=== PATIENT | female | born 1970 | race Caucasian/White ===

== ENCOUNTER 2019-12-20 18:32 | Emergency (ER) | payer MEDICAID ==
[~2019-12-20] VITALS: Ht 162.6 cm; Wt 117.3 kg
[~2019-12-20 18:32] MED LIST: AMLO-150 PO; BUTA1CAP5 PO; CYCL-259 PO; DIAZ5TAB PO; ERGO500017 PO; FURO-92 PO; LOSA100T14 PO; OXYC1TAB18 PO; PARI1CAP3 PO; POTA10TA11 PO
--- NOTE | 2019-12-20 19:10 | NUR ---
THIS IS A 49 YO FEMALE COMING IN FOR "ALL OVER BODY SWELLING, AND I NEED A DIALYSIS TREATMENT". PATIENT HAS NOT BEEN TO DIALYSIS CENTER FOR OVER 1 MONTH. LAST DIALYZED IN ED 2 WEEKS AGO. CURRENTLY C/O DIFFUSE SWELLING ALL OVER BODY AND SOB RELATED TO SWELLING. CRACKLES AUSCULTATED IN BILATERAL BASES OF LUNGS. RESPIRATIONS EVEN AND UNLABORED. ALL MONITORING IN PLACE, NSR ON [facility]. CALL LIGHT IN REACH
[2019-12-20 19:41] LABS: BASOPHILS % (AUTO) 0 % (0-1); EOSINOPHILS # (AUTO) 0.26 x10^3/uL (0-0.4); EOSINOPHILS % (AUTO) 4 % (1-7); LYMPHOCYTES # (AUTO) 1.63 x10^3/uL (1-3.4); LYMPHOCYTES % (AUTO) 22 % (22-44); MD NO; MEAN CORPUSCULAR HEMOGLOBIN 31.3 pg (27.0-34.8); MEAN CORPUSCULAR HGB CONC 32.3 g/dL (32.4-35.8); MEAN PLATELET VOLUME 7.9 fL (7.4-10.4); MONOCYTES # (AUTO) 0.34 x10^3/uL (0.2-0.8); MONOCYTES % (AUTO) 5 % (2-9); NEUTROPHILS # (AUTO) 5.07 x10^3/uL (1.8-6.8); NEUTROPHILS % (AUTO) 69 % (42-75); PLATELET COUNT 188 x10^3/uL (130-400); RED BLOOD COUNT 4.32 x10^6/uL (3.82-5.3); RED CELL DISTRIBUTION WIDTH 16.1 % (9.6-15.2)
[2019-12-20 19:54] LABS: ALBUMIN 2.5 g/dL (3.4-5.0); ANION GAP 5 mmol/L (5-15); CALCIUM 8.2 mg/dL (8.5-10.1); CHLORIDE 115 mmol/L (98-107)
--- NOTE | 2019-12-20 20:00 | NUR ---
PATIENT RESTING ON GURNEY, RESPIRATIONS EVEN AND UNLABORED. VSS, BRITTNY. CALL LIGHT IN REACH. WAITING FOR LABS
[2019-12-20 20:11] LABS: CREATININE 4.74 mg/dL (0.55-1.02)
[2019-12-20 21:00] VITALS: BP 154/100
--- NOTE | 2019-12-20 21:02 | NUR ---
ALL RESULTS BACK, PATIENT UP FOR RECHECK
--- NOTE | 2019-12-20 21:30 | NUR ---
Patient given discharge instructions and they have confirmed that they understand the instructions. Patient ambulatory with steady gait.
== END 2019-12-20 21:33 | disposition home or self-care (01) ==
LOC: ED 19:03
DX: N18.3 Chronic kidney disease, stage 3 (moderate) (principal); R06.00 Dyspnea, unspecified; R94.31 Abnormal electrocardiogram [ECG] [EKG]; Z99.2 Dependence on renal dialysis
CPT/HCPCS: 36415; 71045; 80048; 82040; 83880; 85025; 93005; 99285

== ENCOUNTER 2020-02-29 11:51 | Emergency (ER) | payer MEDICAID ==
[~2020-02-29] VITALS: Ht 162.6 cm; Wt 113.6 kg
--- NOTE | 2020-02-29 12:49 | NUR ---
PT BROUGHT BACK TO ROOM VIA WC. ABLE TO AMBULATE TO [facility]. IN MODERATE RESPIRATORY DISTRESS. SPEAKING IN FULL SENTENCES. ERP AT BS IMMEDIATELY. PT STATES SHE'S SUPPOSED TO GET DIALYSIS 3 DAYS/WEEK BUT HASN'T RECEIVED IT IN ABOUT A WEEK. WANTS TO START GETTING DIALYSIS AT [facility] IN [place] BUT WAS TOLD SHE NEEDS TO BE SEEN IN THE ER FIRST. HAS HD CATH TO R UPPER CHEST; CURRENTLY NOT COVERED BY ANY DRESSING - PT STATES "IT FELL OFF" - REDNESS NOTED AROUND ALL INSERTION SITES. POC RV'WD WITH PT, SHE VERBALIZES UNDERSTANDING. IV INSERTION ATTEMPTED BUT UNSUCCESSFUL.
[2020-02-29] MEDS ORDERED: SODIUM CHLORIDE FLUSH 10ML SYR IVF ONE (13:00)
[2020-02-29 13:07] LABS: BASOPHILS % (AUTO) 1 % (0-1); EOSINOPHILS % (AUTO) 3 % (1-7); LYMPHOCYTES % (AUTO) 19 % (22-44); MEAN CORPUSCULAR HEMOGLOBIN 30.7 pg (27.0-34.8); MEAN CORPUSCULAR HGB CONC 32.1 g/dL (32.4-35.8); MEAN PLATELET VOLUME 8.9 fL (7.4-10.4); MONOCYTES % (AUTO) 5 % (2-9); NEUTROPHILS % (AUTO) 72 % (42-75); PLATELET COUNT 162 x10^3/uL (130-400); RED BLOOD COUNT 4.29 x10^6/uL (3.82-5.3); RED CELL DISTRIBUTION WIDTH 15.2 % (9.6-15.2)
[2020-02-29 13:08] LABS: MD NO
[2020-02-29] MEDS ORDERED: ALBUTEROL/IPRATROPIUM 2.5MG/0.5MG, 3 ML ONE (13:09)
[2020-02-29 13:17] LABS: ALBUMIN 2.6 g/dL (3.4-5.0); ANION GAP 6 mmol/L (5-15); CALCIUM 8.1 mg/dL (8.5-10.1); CHLORIDE 112 mmol/L (98-107)
--- NOTE | 2020-02-29 13:18 | NUR ---
IV INSERTED BY ASSIST RN. PT REQUESTING BREATHING TX; VERBAL ORDER RC'VD BY ERP. PT REPORTS SHE'S SUPPOSED TO BE TAKING LASIX, LOSARTAN, AMLODIPINE, VIT D, BUT ISN'T CURRENTLY TAKING ANY MEDS.
[2020-02-29] MEDS ORDERED: VITAMIN D PO (13:20)
[2020-02-29] MEDS ORDERED: ALBUTEROL/IPRATROPIUM 2.5MG/0.5MG, 3 ML NPPB ONE (13:30)
[2020-02-29 13:33] LABS: CREATININE 4.58 mg/dL (0.55-1.02)
--- NOTE | 2020-02-29 13:45 | NUR ---
PT STATES SHE FEELS BETTER AFTER BREATHING TX. BREATHING NOT LABORED. PLAN TO ADMIT PT.
[2020-02-29] MEDS ORDERED: LOSARTAN 100 MG TAB PO STA (14:05)
[2020-02-29] MEDS ORDERED: FUROSEMIDE 40 MG/4 ML ONE (14:14)
[2020-02-29] MEDS ORDERED: FUROSEMIDE 20 MG/2 ML IV ONE (14:30)
--- NOTE | 2020-02-29 14:44 | NUR ---
PT MEDICATED PER ORDERS. STATES SHE HAS TO LEAVE TO TAKE CARE OF HER KIDS. ERP AWARE. WILL RECHECK BP AND THEN PT CAN BE DISCHARGED. DIALYSIS CATH INSERTION SITES TO R UPPER CHEST CLEANED USING CHLORHEXADINE AND STERILE TECHNIQUE AND NEW STERILE DRESSING APPLIED.
[2020-02-29 14:48] LABS: TROPONIN I 0.048 ng/mL (0.000-0.045)
[2020-02-29 15:16] VITALS: BP 173/123
--- NOTE | 2020-02-29 15:27 | NUR ---
SPO2 MUCH IMPROVED AFTER BREATHING TX, 98-100% ON 2L NC. PT STATES SHE HAS HOME O2. D/C INSTRUCTIONS, MEDS & F/U APPT RV'WD WITH PT, SHE VERBALIZES UNDERSTANDING. RX GIVEN X2. COPY OF H&P PROVIDED TO PT. PT STATES SHE WON'T BE ABLE TO GET AN APPT WITH [facility] YET, SO SHE WILL RETURN TO ED TOMORROW FOR EMERGENT DIALYSIS. ASSISTED OUT OF ED VIA WC. FAMILY TO PICK HER UP.
== END 2020-02-29 15:32 | disposition left against medical advice (07) ==
LOC: ED 12:25 → EDIP 13:56 → UNDOADMIN 13:56 → ED 15:26
DX: I12.9 Hypertensive chronic kidney disease with stage 1 through stage 4 chronic kidney disease, or unspecified chronic kidney disease (principal); N18.9 Chronic kidney disease, unspecified; R06.00 Dyspnea, unspecified; I45.9 Conduction disorder, unspecified; R94.31 Abnormal electrocardiogram [ECG] [EKG]; J44.9 Chronic obstructive pulmonary disease, unspecified; F17.200 Nicotine dependence, unspecified, uncomplicated; Z91.19 Patient's noncompliance with other medical treatment and regimen
CPT/HCPCS: 36415; 71045; 80048; 82040; 83880; 84484; 85025; 93005; 94640; 96374; 99285; J1940

== ENCOUNTER 2020-03-02 15:48 | Inpatient (IN) | payer MEDICAID ==
[~2020-03-02] VITALS: Ht 162.6 cm; Wt 113.0 kg
[~2020-03-02 15:48] MED LIST changes: +VITAMIN D PO
[2020-03-02 16:26] LABS: BASOPHILS % (AUTO) 1 % (0-1); EOSINOPHILS % (AUTO) 3 % (1-7); LYMPHOCYTES % (AUTO) 18 % (22-44); MEAN CORPUSCULAR HEMOGLOBIN 30.2 pg (27.0-34.8); MEAN CORPUSCULAR HGB CONC 31.3 g/dL (32.4-35.8); MEAN PLATELET VOLUME 8.6 fL (7.4-10.4); MONOCYTES % (AUTO) 5 % (2-9); NEUTROPHILS % (AUTO) 73 % (42-75); PLATELET COUNT 168 x10^3/uL (130-400); RED BLOOD COUNT 4.38 x10^6/uL (3.82-5.3); RED CELL DISTRIBUTION WIDTH 15.3 % (9.6-15.2)
[2020-03-02 16:33] LABS: MD NO
[2020-03-02 16:39] LABS: ALBUMIN 2.6 g/dL (3.4-5.0); ANION GAP 4 mmol/L (5-15); CALCIUM 7.9 mg/dL (8.5-10.1); CHLORIDE 111 mmol/L (98-107)
[2020-03-02 16:56] LABS: ALANINE AMINOTRANSFERASE 22 U/L (12-78); ALKALINE PHOSPHATASE 143 U/L (45-117); BILIRUBIN,TOTAL 0.6 mg/dL (0.2-1.0); CREATININE 4.35 mg/dL (0.55-1.02); TOTAL PROTEIN 5.9 g/dL (6.4-8.2)
--- NOTE | 2020-03-02 17:31 | NUR ---
COAT OPERATOR INSULATOR: PT TO ROOM FROM LOBBY
[2020-03-02] MEDS ORDERED: LOSARTAN 50MG TABLET PO ONE (18:30)
[2020-03-02] MEDS ORDERED: FUROSEMIDE 40 MG/4 ML IV ONE ×2 (18:30)
[2020-03-02] MEDS ORDERED: AMLODIPINE 5 MG TABLET PO ONE (18:30)
[2020-03-02] MEDS ORDERED: FUROSEMIDE 40 MG/4 ML ONE (18:51)
[2020-03-02] MEDS ORDERED: AMLODIPINE 5 MG TABLET ONE (18:52)
[2020-03-02] MEDS ORDERED: FUROSEMIDE 20 MG/2 ML ONE (18:52)
[2020-03-02] MEDS ORDERED: LABETALOL 5MG/ML, 20ML IVPush PRN (19:00)
[2020-03-02] MEDS ORDERED: ENALAPRILAT 1.25 MG/ML, 2ML IVPush PRN (19:00)
[2020-03-02] MEDS ORDERED: ACETAMINOPHEN 325 MG TABLET PO PRN (19:00)
[2020-03-02] MEDS ORDERED: GUAIFENESIN/DM 200-20MG, 10ML UDC PO PRN (19:00)
[2020-03-02] MEDS ORDERED: hydrALAzine 20 MG/ML, 1ML IVPush PRN (19:00)
[2020-03-02] MEDS ORDERED: DOCUSATE 100 MG CAPSULE PO PRN (19:00)
--- NOTE | 2020-03-02 19:14 | NUR ---
PT MEDICATED WITH LASIX AND PO MEDS. BP ELEVATED. COMMODE AT BEDSIDE. PT TO BE ADMITTED. CALL LIGHT IN REACH
--- NOTE | 2020-03-02 19:15 | NUR ---
REPORT GIVEN TO CONNIE LR. PT RESTING ON [employer] W/ CALL LIGHT IN REACH, RESP EVEN AND UNLABORED, BRITTNY.
--- NOTE | 2020-03-02 20:19 | NUR ---
PT GIVEN A SNACK. VSS. CALL LIGHT IN REACH
[2020-03-02] MEDS ORDERED: ACETAMINOPHEN 500 MG TABLET PO ONE (20:30)
[2020-03-02] MEDS ORDERED: ALBUTEROL SULFATE 2.5 MG/3 ML ONE (20:46)
[2020-03-02] MEDS ORDERED: HEPARIN 5,000 UNITS/ML, 1ML ONE (20:46)
[2020-03-02] MEDS ORDERED: ACETAMINOPHEN 500 MG TABLET ONE ×2 (20:46→20:50)
[2020-03-02] MEDS ORDERED: ALBUTEROL SULFATE 2.5 MG/3 ML NPPB ONE (21:00)
[2020-03-02] MEDS: HEPARIN 5,000 UNITS/ML, 1ML SQ SCH (21:00)
--- NOTE | 2020-03-02 21:00 | NUR ---
task rn: medicated per emar
[2020-03-02 22:15] VITALS: BP 158/97
[2020-03-03 00:08] VITALS: BP 160/96
[2020-03-03] MEDS ORDERED: NICOTINE 14MG/24 HR PATCH.TD24 ONE (01:33)
[2020-03-03] MEDS: ALBUTEROL HFA 90 MCG/SPRAY INH PRN ×2 (02:32→06:19)
[2020-03-03] MEDS: HEPARIN 5,000 UNITS/ML, 1ML SQ SCH ×3 (05:01→21:00)
[2020-03-03 05:28] LABS: BASOPHILS % (AUTO) 1 % (0-1); EOSINOPHILS % (AUTO) 4 % (1-7); LYMPHOCYTES % (AUTO) 20 % (22-44); MEAN CORPUSCULAR HEMOGLOBIN 30.8 pg (27.0-34.8); MEAN CORPUSCULAR HGB CONC 31.6 g/dL (32.4-35.8); MEAN PLATELET VOLUME 8.7 fL (7.4-10.4); MONOCYTES % (AUTO) 6 % (2-9); NEUTROPHILS % (AUTO) 70 % (42-75); PLATELET COUNT 159 x10^3/uL (130-400); RED CELL DISTRIBUTION WIDTH 15.2 % (9.6-15.2)
[2020-03-03 05:30] LABS: MD NO
[2020-03-03 05:38] LABS: ANION GAP 4 mmol/L (5-15); CALCIUM 7.8 mg/dL (8.5-10.1); CHLORIDE 113 mmol/L (98-107)
[2020-03-03 05:40] LABS: CREATININE 4.33 mg/dL (0.55-1.02)
[2020-03-03] MEDS ORDERED: LOSARTAN 100 MG TAB PO SCH (09:00)
[2020-03-03] MEDS ORDERED: POTASSIUM CHLORIDE 10 MEQ TABLET.ER PO SCH (09:00)
[2020-03-03] MEDS ORDERED: NICOTINE 14MG/24 HR PATCH.TD24 TD SCH (09:00)
[2020-03-03] MEDS ORDERED: AMLODIPINE 5 MG TABLET PO SCH (09:00)
[2020-03-03 09:10] VITALS: BP 130/85
[2020-03-03] MEDS: FUROSEMIDE 40 MG TABLET PO SCH ×3 (09:13→20:45)
[2020-03-03] MEDS ORDERED: CATHFLO-ALTEPLASE 2 MG/2 ML CATHFLUSH ONE ×2 (12:00)
[2020-03-03 16:49] VITALS: BP 148/95
== END 2020-03-03 22:30 | disposition home or self-care (01) | DRG 194 ==
LOC: ED 18:39 → EDIP 18:51 → 4WST 21:59 → 3WST 03-03 09:47
PROVIDERS: ADMIT Family Medicine; ATTEND Family Medicine
PROC: 5A1D70Z Performance of Urinary Filtration, Intermittent, Less than 6 Hours Per Day (ICD-10-PCS; principal; 2020-03-02)
DX: I13.2 Hypertensive heart and chronic kidney disease with heart failure and with stage 5 chronic kidney disease, or end stage renal disease (principal); I50.33 Acute on chronic diastolic (congestive) heart failure; D63.1 Anemia in chronic kidney disease; I16.0 Hypertensive urgency; I31.3 Pericardial effusion (noninflammatory); J44.1 Chronic obstructive pulmonary disease with (acute) exacerbation; J96.01 Acute respiratory failure with hypoxia; N18.6 End stage renal disease; Z72.0 Tobacco use; Z87.442 Personal history of urinary calculi; Z91.14 Patient's other noncompliance with medication regimen; Z99.2 Dependence on renal dialysis; Z91.15 Patient's noncompliance with renal dialysis; Z88.2 Allergy status to sulfonamides; Z91.048 Other nonmedicinal substance allergy status
CPT/HCPCS: 36415; 71045; 80048; 80053; 83880; 85025; 86704; 86706; 87340; 90935; 93005; 96374; 99285; G0378; J1644; J1940; J2997; J7613; J0360

== ENCOUNTER 2020-04-06 12:35 | Emergency (ER) | payer MEDICAID ==
[~2020-04-06] VITALS: Ht 162.6 cm; Wt 115.0 kg
[2020-04-06] MEDS ORDERED: HYDROcodone/APAP 5/325 TABLET PO PRN (13:00)
[2020-04-06] MEDS ORDERED: ALBUTEROL/IPRATROPIUM 2.5MG/0.5MG, 3 ML NPPB ONE (13:00)
--- NOTE | 2020-04-06 13:08 | NUR ---
PT TO RADIOLOGY WITH TECH TRANSPORT
[2020-04-06] MEDS ORDERED: HYDROcodone/APAP 5/325 TABLET ONE (13:10)
[2020-04-06 13:27] LABS: BASOPHILS % (AUTO) 1 % (0-1); EOSINOPHILS % (AUTO) 1 % (1-7); LYMPHOCYTES % (AUTO) 7 % (22-44); MEAN CORPUSCULAR HEMOGLOBIN 30.1 pg (27.0-34.8); MEAN CORPUSCULAR HGB CONC 31.5 g/dL (32.4-35.8); MONOCYTES % (AUTO) 4 % (2-9); NEUTROPHILS % (AUTO) 87 % (42-75); PLATELET COUNT 205 x10^3/uL (130-400); RED BLOOD COUNT 4.28 x10^6/uL (3.82-5.3); RED CELL DISTRIBUTION WIDTH 15.6 % (9.6-15.2)
--- NOTE | 2020-04-06 13:27 | NUR ---
TASK RN: MEDICATED PER MAY.
[2020-04-06 13:29] LABS: MD NO
[2020-04-06 13:43] LABS: ANION GAP 7 mmol/L (5-15); CALCIUM 8.5 mg/dL (8.5-10.1); CHLORIDE 110 mmol/L (98-107); CREATININE 4.99 mg/dL (0.55-1.02)
[2020-04-06 13:44] LABS: ALBUMIN 2.3 g/dL (3.4-5.0)
[2020-04-06] MEDS ORDERED: ALBUTEROL/IPRATROPIUM 2.5MG/0.5MG, 3 ML ONE (14:00)
--- NOTE | 2020-04-06 14:22 | NUR ---
PT RATES PAIN NOW 5/10 AFTER NORCO. VSS, TESTS RESULTED AND CHART UP FOR RECHECK. PT AWARE. CALL LIGHT W/I REACH
--- NOTE | 2020-04-06 15:09 | NUR ---
DR HUGHES AT BEDSIDE, PLAN FOR CLOSED REDUCTION LEFT SHOULDER DISCUSSED AND QUESTIONS ANSWERED. CONSENT OBTAINED. PIV EST.
[2020-04-06] MEDS ORDERED: FENTANYL PF 100 MCG/2ML ONE (15:10)
[2020-04-06] MEDS ORDERED: ETOMIDATE 20 MG/10 ML ONE (15:11)
--- NOTE | 2020-04-06 16:10 | NUR ---
TASK RN: PT AWAKENS WITH LIGHT TOUCH STILUMUS, RESTING COMFORTABLY, NAD, IMMOBILIZER IN PLACE WITH +RAD PULSE & CAP REFIL <3 SEC TO RT WRIST/HAND. Addendum: 04/06/20 at 1616 by GERSON TASK RN: PT AWAKENS WITH LIGHT TOUCH STILUMUS, RESTING COMFORTABLY, NAD, IMMOBILIZER IN PLACE WITH +RAD PULSE & CAP REFIL <3 SEC TO LT WRIST/HAND.
--- NOTE | 2020-04-06 16:24 | NUR ---
TASK RN: PT AWAKENS WITH VERBAL STILUMI & ANSWERS MOST QUESTIONS APPROP, CONTINUES TO RESTING COMFORTABLY WITH NAD UNLESS TRYING TO REPOSITION SELF ON GURNEY, IMMOBILIZER REMAINS IN PLACE WITH +RAD PULSE & CAP REFIL <3 SEC TO RT WRIST/HAND.
--- NOTE | 2020-04-06 16:35 | NUR ---
TASK RN: PT SPONTANEOUSLY OPENS EYES TO WITH VERBAL STILUMI & ANSWERS QUESTIONS APPROP, CONTINUES TO REST COMFORTABLY, IMMOBILIZER REMAINS IN PLACE WITH +RAD PULSE & CAP REFIL <3 SEC TO RT WRIST/HAND.
--- NOTE | 2020-04-06 16:50 | NUR ---
TASK RN: PT SPONTANEOUSLY OPENS EYES TO WITH VERBAL STILUMI & ANSWERS QUESTIONS APPROP, GOOD COUGH EFFORT & ABLE TO CLEAR SECRETIONS INDEPENDENTLY, CONTINUES TO REST COMFORTABLY, IMMOBILIZER REMAINS IN PLACE WITH +RAD PULSE & CAP REFIL <3 SEC TO RT WRIST/HAND.
[2020-04-06] MEDS ORDERED: FENTANYL PF 100 MCG/2ML IVPush ONE (17:30)
[2020-04-06] MEDS ORDERED: ETOMIDATE 20 MG/10 ML IVPush ONE (17:30)
[2020-04-06 18:00] VITALS: BP 153/99
--- NOTE | 2020-04-06 18:36 | NUR ---
LATE ENTRY FOR PROCEDURE. 1530 DR HUGHES AT BEDSIDE, PT SEDATED NOTED WITH EFFECT. CLOSED REDUCTION COMPLETED AND POST REDUCTION XRAY COMPLETED AND REVIEWED BY DR HUGHES. REDUCTION SUCCESSFUL. SHOLDER IMMOBILIZER PLACED. PT TOLLERATED WELL AND REMAINS SLEEPING. RN AT [facility]. 1610 PT AWAKE, PT DENIES ANY MEMORY OF THE PROCEDURE.
--- NOTE | 2020-04-06 18:49 | NUR ---
LATE ENTRY FOR 1809. PT OOB TO WHEELCHAIR WITH RN STANDBY ASSIST. PT TOLLERATED WELL AND DENIES ANY DIZZINESS.
--- NOTE | 2020-04-06 18:50 | NUR ---
Patient/Caregiver given discharge instructions and they have confirmed that they understand the instructions. I stressed to pts S.O. Silas Richmond that pt is to have no alcohol or recreational drugs including no marrijuana tonight. Patient to car via wheelchair and transfered into car w/o difficulty.
== END 2020-04-06 18:54 | disposition home or self-care (01) ==
LOC: ED 17:03
DX: S42.202A Unspecified fracture of upper end of left humerus, initial encounter for closed fracture (principal); R06.2 Wheezing; I13.2 Hypertensive heart and chronic kidney disease with heart failure and with stage 5 chronic kidney disease, or end stage renal disease; N18.6 End stage renal disease; I50.9 Heart failure, unspecified; Z99.2 Dependence on renal dialysis; W18.30XA Fall on same level, unspecified, initial encounter; Y93.89 Activity, other specified; Y92.89 Other specified places as the place of occurrence of the external cause; Y99.8 Other external cause status
CPT/HCPCS: 23650; 36415; 73020; 73060; 73200; 80048; 82040; 85025; 94640; 99152; 99285; J3010

== ENCOUNTER 2020-04-26 12:50 | Inpatient (IN) | payer MEDICAID ==
[~2020-04-26] VITALS: Ht 165.1 cm; Wt 105.0 kg
[~2020-04-26 12:50] MED LIST changes: -CYCL-259 PO; +CYCL10TA2 PO
--- NOTE | 2020-04-26 13:15 | NUR ---
PT brought back to room via WC. pt in with C/O of increased shortness of breath and fatigue. pt states that she has not had diaylsis in 2 weeks and "all my body wants to do is sleep"
[2020-04-26] MEDS ORDERED: FUROSEMIDE 40 MG/4 ML IVPush ONE (14:00)
[2020-04-26] MEDS ORDERED: FUROSEMIDE 40 MG/4 ML ONE (14:15)
[2020-04-26 14:46] LABS: BASOPHILS % (AUTO) 1 % (0-1); EOSINOPHILS % (AUTO) 2 % (1-7); LYMPHOCYTES % (AUTO) 15 % (22-44); MEAN CORPUSCULAR HEMOGLOBIN 29.9 pg (27.0-34.8); MEAN CORPUSCULAR HGB CONC 30.7 g/dL (32.4-35.8); MONOCYTES % (AUTO) 9 % (2-9); NEUTROPHILS % (AUTO) 74 % (42-75); PLATELET COUNT 175 x10^3/uL (130-400); RED BLOOD COUNT 3.68 x10^6/uL (3.82-5.3); RED CELL DISTRIBUTION WIDTH 16.9 % (9.6-15.2)
[2020-04-26 14:54] LABS: MD NO
[2020-04-26 14:58] LABS: ALBUMIN 2.8 g/dL (3.4-5.0); CALCIUM 7.6 mg/dL (8.5-10.1); CHLORIDE 108 mmol/L (98-107); CREATININE 4.86 mg/dL (0.55-1.02)
[2020-04-26 15:02] LABS: TROPONIN I 0.063 ng/mL (0.000-0.045)
--- NOTE | 2020-04-26 15:03 | NUR ---
RECEIVED REPORT FROM JESE LR, PLAN OF CARE DISCUSSED
[2020-04-26 15:07] LABS: ANION GAP 5 mmol/L (5-15)
--- NOTE | 2020-04-26 15:11 | NUR ---
PT REQUESTS FAMILY MEMBER TO VISIT, CALLED FAMILY MEMBER IN LOBBY, NO ANSWER.
--- NOTE | 2020-04-26 16:02 | NUR ---
WARM BLANKET GIVEN, ORDERED MEAL PER PT REQUEST
--- NOTE | 2020-04-26 16:28 | NUR ---
Sherice RN note: This RN entered pt room to answer pt's call light. Pt reports "There's blood everywhere". This RN assessed pt. Scant amount of blood noted on scratches on pt's L posterior forearm. Pt reports the scratches are from her scratching her arm "because I'm so itchy." Pt provided with wet washcloth per request to wipe scratches. Pt assisted to position herselff for comfort in bed. Continuous oxygen and BP monitors reapplied as pt had removed them. Pt requesting food to eat. Dr. Ortega, animal surgeon, at bedside to evaluate pt.
--- NOTE | 2020-04-26 16:53 | NUR ---
MEAL PROVIDED FOR PATIENT, PT VERBALIZED APPRECIATION AND NO OTHER NEEDS AT THIS TIME
--- NOTE | 2020-04-26 17:34 | NUR ---
PT ATE 100%, PT REQUESTED LIGHTS OFF TO SLEEP, CALL LIGHT IN PLACE, VERBALIZED NO OTHER NEEDS AT THIS TIME
--- NOTE | 2020-04-26 17:54 | NUR ---
CALLED REPORT TO MARCY LR, 4W, PLAN OF CARE DISCUSSED
[2020-04-26] MEDS ORDERED: ONDANSETRON 2MG/ML, 2ML IVPush PRN (18:00)
[2020-04-26] MEDS ORDERED: FUROSEMIDE 40 MG/4 ML IV ONE (18:00)
[2020-04-26] MEDS ORDERED: ONDANSETRON ODT 4 MG PO PRN (18:00)
[2020-04-26] MEDS ORDERED: hydrALAzine 20 MG/ML, 1ML IVPush PRN (18:00)
[2020-04-26] MEDS ORDERED: ACETAMINOPHEN 325 MG TABLET PO PRN (18:00)
[2020-04-26] MEDS ORDERED: FUROSEMIDE 20 MG/2 ML IV ONE (18:30)
[2020-04-26] MEDS: methylPREDNISolone SOD SUCC 125 MG/2 ML IVPush SCH (18:45)
[2020-04-26] MEDS: HEPARIN 5,000 UNITS/ML, 1ML SQ SCH (18:45)
[2020-04-26 18:52] VITALS: BP 162/101
[2020-04-26 19:16] VITALS: BP 143/86
[2020-04-26 20:44] LABS: AMPHETAMINE SCREEN, URINE Negative (Negative); BARBITURATE SCREEN, URINE Negative (Negative); BENZODIAZEPINE SCREEN, URINE Negative (Negative); CANNABINOID SCREEN, URINE Negative (Negative); COCAINE SCREEN, URINE Positive (Negative); METHADONE SCREEN, URINE Negative (Negative); OPIATE SCREEN, URINE Negative (Negative)
[2020-04-26] MEDS ORDERED: LORazepam 0.5MG TABLET PO ONE (22:30)
[2020-04-27 00:01] VITALS: BP 163/107
[2020-04-27] MEDS: OXYcodone IR 5MG TABLET PO PRN ×2 (00:18→14:15)
[2020-04-27 00:23] VITALS: BP 139/90
[2020-04-27] MEDS: HEPARIN 5,000 UNITS/ML, 1ML SQ SCH ×3 (03:18→18:10)
[2020-04-27] MEDS: methylPREDNISolone SOD SUCC 125 MG/2 ML IVPush SCH ×3 (03:18→18:10)
[2020-04-27 07:39] VITALS: BP 158/85
[2020-04-27] MEDS: LOSARTAN 100 MG TAB PO SCH (08:13)
[2020-04-27] MEDS: AMLODIPINE 5 MG TABLET PO SCH (08:13)
[2020-04-27 08:14] LABS: BASOPHILS % (AUTO) 0 % (0-1); EOSINOPHILS % (AUTO) 0 % (1-7); LYMPHOCYTES % (AUTO) 7 % (22-44); MEAN CORPUSCULAR HEMOGLOBIN 30.1 pg (27.0-34.8); MEAN CORPUSCULAR HGB CONC 30.9 g/dL (32.4-35.8); MEAN PLATELET VOLUME 8.4 fL (7.4-10.4); MONOCYTES % (AUTO) 1 % (2-9); NEUTROPHILS % (AUTO) 93 % (42-75); PLATELET COUNT 155 x10^3/uL (130-400); RED CELL DISTRIBUTION WIDTH 16.9 % (9.6-15.2)
[2020-04-27] MEDS: ALBUTEROL HFA 90 MCG/SPRAY INH SCH ×4 (08:15→22:00)
[2020-04-27 08:25] LABS: ALANINE AMINOTRANSFERASE 50 U/L (12-78); ALBUMIN 2.9 g/dL (3.4-5.0); ANION GAP 5 mmol/L (5-15); CALCIUM 7.8 mg/dL (8.5-10.1); CHLORIDE 108 mmol/L (98-107)
[2020-04-27 08:28] LABS: ALKALINE PHOSPHATASE 151 U/L (45-117); BILIRUBIN,TOTAL 0.3 mg/dL (0.2-1.0); CREATININE 4.12 mg/dL (0.55-1.02); TOTAL PROTEIN 6.5 g/dL (6.4-8.2)
[2020-04-27] MEDS ORDERED: POTASSIUM CHLORIDE 10 MEQ TABLET.ER PO SCH (09:00)
[2020-04-27 09:06] LABS: MD SCAN
[2020-04-27 12:05] VITALS: BP 152/86
[2020-04-27] MEDS: FUROSEMIDE 80 MG TABLET PO SCH (18:11)
[2020-04-27 20:10] VITALS: BP 132/89
[2020-04-27] MEDS ORDERED: TEMAZEPAM 15 MG CAPSULE ONE (22:35)
[2020-04-27] MEDS: TEMAZEPAM 15 MG CAPSULE PO PRN (22:40)
[2020-04-28 00:06] VITALS: BP 125/84
[2020-04-28] MEDS: methylPREDNISolone SOD SUCC 125 MG/2 ML IVPush SCH ×3 (02:13→18:10)
[2020-04-28] MEDS: HEPARIN 5,000 UNITS/ML, 1ML SQ SCH ×3 (02:13→18:10)
[2020-04-28] MEDS: ALBUTEROL HFA 90 MCG/SPRAY INH SCH ×4 (07:00→19:47)
[2020-04-28 07:30] VITALS: BP 130/86
[2020-04-28 08:26] LABS: ALBUMIN 2.7 g/dL (3.4-5.0); ANION GAP 8 mmol/L (5-15); CALCIUM 8.2 mg/dL (8.5-10.1); CHLORIDE 105 mmol/L (98-107); CREATININE 3.56 mg/dL (0.55-1.02)
[2020-04-28] MEDS: LOSARTAN 100 MG TAB PO SCH (08:45)
[2020-04-28] MEDS: FUROSEMIDE 80 MG TABLET PO SCH (08:46)
[2020-04-28] MEDS: AMLODIPINE 5 MG TABLET PO SCH (08:46)
[2020-04-28 09:21] LABS: BASOPHILS % (AUTO) 1 % (0-1); EOSINOPHILS % (AUTO) 0 % (1-7); LYMPHOCYTES % (AUTO) 8 % (22-44); MEAN CORPUSCULAR HEMOGLOBIN 30.1 pg (27.0-34.8); MEAN CORPUSCULAR HGB CONC 31.3 g/dL (32.4-35.8); MEAN PLATELET VOLUME 8.6 fL (7.4-10.4); MONOCYTES % (AUTO) 3 % (2-9); NEUTROPHILS % (AUTO) 89 % (42-75); PLATELET COUNT 173 x10^3/uL (130-400); RED BLOOD COUNT 3.83 x10^6/uL (3.82-5.3); RED CELL DISTRIBUTION WIDTH 16.7 % (9.6-15.2)
[2020-04-28 09:24] LABS: MD NO
[2020-04-28 12:29] VITALS: BP 128/83
[2020-04-28 19:29] VITALS: BP 162/97
[2020-04-29 01:15] VITALS: BP 154/98
[2020-04-29] MEDS: HEPARIN 5,000 UNITS/ML, 1ML SQ SCH ×3 (02:07→20:38)
[2020-04-29] MEDS: methylPREDNISolone SOD SUCC 125 MG/2 ML IVPush SCH ×3 (02:07→20:38)
[2020-04-29] MEDS: OXYcodone IR 5MG TABLET PO PRN ×2 (02:16→08:24)
[2020-04-29 07:12] LABS: BASOPHILS % (AUTO) 1 % (0-1); EOSINOPHILS % (AUTO) 0 % (1-7); LYMPHOCYTES % (AUTO) 6 % (22-44); MEAN CORPUSCULAR HGB CONC 30.6 g/dL (32.4-35.8); MEAN PLATELET VOLUME 8.5 fL (7.4-10.4); MONOCYTES % (AUTO) 2 % (2-9); NEUTROPHILS % (AUTO) 92 % (42-75); PLATELET COUNT 184 x10^3/uL (130-400); RED BLOOD COUNT 3.88 x10^6/uL (3.82-5.3)
[2020-04-29 07:18] LABS: CALCIUM 8.4 mg/dL (8.5-10.1); CREATININE 4.31 mg/dL (0.55-1.02)
[2020-04-29 07:27] LABS: MD SCAN
[2020-04-29 07:39] LABS: ANION GAP 7 mmol/L (5-15); CHLORIDE 108 mmol/L (98-107)
[2020-04-29] MEDS: ALBUTEROL HFA 90 MCG/SPRAY INH SCH ×4 (08:24→20:00)
[2020-04-29 08:39] VITALS: BP 148/95
[2020-04-29 12:18] VITALS: BP 142/90
[2020-04-29 20:10] VITALS: BP 155/97
[2020-04-29] MEDS: LOSARTAN 100 MG TAB PO SCH (20:37)
[2020-04-29] MEDS: AMLODIPINE 5 MG TABLET PO SCH (20:37)
[2020-04-29] MEDS: FUROSEMIDE 80 MG TABLET PO SCH (20:37)
[2020-04-29] MEDS: TEMAZEPAM 15 MG CAPSULE PO PRN ×2 (21:54)
[2020-04-30 02:03] VITALS: BP 125/78
[2020-04-30] MEDS: HEPARIN 5,000 UNITS/ML, 1ML SQ SCH ×3 (02:15→17:57)
[2020-04-30] MEDS: methylPREDNISolone SOD SUCC 125 MG/2 ML IVPush SCH ×3 (02:15→22:55)
[2020-04-30 06:30] LABS: CHLORIDE 106 mmol/L (98-107)
[2020-04-30 06:34] LABS: ALBUMIN 2.9 g/dL (3.4-5.0); ANION GAP 10 mmol/L (5-15); CALCIUM 8.3 mg/dL (8.5-10.1)
[2020-04-30 07:02] VITALS: BP 136/73
[2020-04-30] MEDS: AMLODIPINE 5 MG TABLET PO SCH (08:53)
[2020-04-30] MEDS: LOSARTAN 100 MG TAB PO SCH (08:53)
[2020-04-30] MEDS: FUROSEMIDE 80 MG TABLET PO SCH (08:53)
[2020-04-30] MEDS: ALBUTEROL HFA 90 MCG/SPRAY INH SCH ×4 (08:53→23:01)
[2020-04-30] MEDS: OXYcodone IR 5MG TABLET PO PRN ×2 (08:53→21:09)
[2020-04-30 10:40] LABS: BASOPHILS % (AUTO) 0 % (0-1); EOSINOPHILS % (AUTO) 0 % (1-7); LYMPHOCYTES % (AUTO) 11 % (22-44); MEAN CORPUSCULAR HEMOGLOBIN 29.9 pg (27.0-34.8); MEAN CORPUSCULAR HGB CONC 30.5 g/dL (32.4-35.8); MEAN PLATELET VOLUME 7.8 fL (7.4-10.4); MONOCYTES % (AUTO) 6 % (2-9); NEUTROPHILS % (AUTO) 83 % (42-75); PLATELET COUNT 154 x10^3/uL (130-400); RED BLOOD COUNT 3.85 x10^6/uL (3.82-5.3); RED CELL DISTRIBUTION WIDTH 16.9 % (9.6-15.2)
[2020-04-30 10:45] LABS: MD NO
[2020-04-30 14:45] VITALS: BP 110/51
[2020-04-30 18:43] VITALS: BP 107/67
[2020-05-01 01:27] VITALS: BP 129/83
[2020-05-01] MEDS: HEPARIN 5,000 UNITS/ML, 1ML SQ SCH ×3 (02:17→17:36)
[2020-05-01] MEDS: TEMAZEPAM 15 MG CAPSULE PO PRN ×2 (04:22→20:55)
[2020-05-01 06:00] LABS: ALBUMIN 2.9 g/dL (3.4-5.0); ANION GAP 4 mmol/L (5-15); CHLORIDE 108 mmol/L (98-107)
[2020-05-01 06:04] LABS: ALANINE AMINOTRANSFERASE 30 U/L (12-78); ALKALINE PHOSPHATASE 125 U/L (45-117); BILIRUBIN,TOTAL 0.4 mg/dL (0.2-1.0); CREATININE 4.39 mg/dL (0.55-1.02); TOTAL PROTEIN 5.9 g/dL (6.4-8.2)
[2020-05-01] MEDS: ALBUTEROL HFA 90 MCG/SPRAY INH SCH ×4 (07:00→20:00)
[2020-05-01] MEDS: methylPREDNISolone SOD SUCC 125 MG/2 ML IVPush SCH ×3 (07:00→23:07)
[2020-05-01 07:30] VITALS: BP 113/86
[2020-05-01] MEDS: LOSARTAN 100 MG TAB PO SCH (07:30)
[2020-05-01] MEDS: FUROSEMIDE 80 MG TABLET PO SCH (07:30)
[2020-05-01] MEDS: AMLODIPINE 5 MG TABLET PO SCH (07:30)
[2020-05-01 12:01] VITALS: BP 136/91
[2020-05-01 19:02] VITALS: BP 147/103
[2020-05-02 00:31] VITALS: BP 146/85
[2020-05-02] MEDS: HEPARIN 5,000 UNITS/ML, 1ML SQ SCH ×3 (02:52→18:17)
[2020-05-02 07:06] VITALS: BP 145/88
[2020-05-02 07:53] LABS: ALBUMIN 2.9 g/dL (3.4-5.0); ANION GAP 3 mmol/L (5-15); CALCIUM 8.1 mg/dL (8.5-10.1); CHLORIDE 106 mmol/L (98-107)
[2020-05-02 07:55] LABS: CREATININE 3.55 mg/dL (0.55-1.02)
[2020-05-02] MEDS: FUROSEMIDE 80 MG TABLET PO SCH (08:16)
[2020-05-02] MEDS: LOSARTAN 100 MG TAB PO SCH (08:16)
[2020-05-02] MEDS: AMLODIPINE 5 MG TABLET PO SCH (08:16)
[2020-05-02] MEDS: methylPREDNISolone SOD SUCC 125 MG/2 ML IVPush SCH ×3 (08:17→23:32)
[2020-05-02] MEDS: ALBUTEROL HFA 90 MCG/SPRAY INH SCH ×4 (08:25→20:00)
[2020-05-02 12:14] VITALS: BP 142/85
[2020-05-02] MEDS ORDERED: POLYETHYLENE GLYCOL 17 GM PACKET PO PRN (12:30)
[2020-05-02] MEDS ORDERED: BISACODYL 5 MG EC TABLET PO PRN (12:30)
[2020-05-02] MEDS: SENNA/DOCUSATE TABLET PO SCH (12:45)
[2020-05-02] MEDS ORDERED: MAGNESIUM HYDROXIDE 8%, 30ML UDC ONE (16:11)
[2020-05-02] MEDS ORDERED: BISACODYL 10 MG SUPP ONE (16:19)
[2020-05-02] MEDS ORDERED: MAGNESIUM HYDROXIDE 8%, 30ML UDC PO PRN (16:30)
[2020-05-02] MEDS ORDERED: BISACODYL 10 MG SUPP PR PRN (16:30)
[2020-05-02] MEDS ORDERED: LACTULOSE 20 GM/30 ML UDC PO PRN (17:30)
[2020-05-02] MEDS: OXYcodone IR 5MG TABLET PO PRN (20:06)
[2020-05-02] MEDS: TEMAZEPAM 15 MG CAPSULE PO PRN (20:06)
[2020-05-02 20:51] VITALS: BP 152/83
[2020-05-03 02:00] VITALS: BP 138/76
[2020-05-03] MEDS: HEPARIN 5,000 UNITS/ML, 1ML SQ SCH ×3 (02:42→17:26)
[2020-05-03] MEDS: OXYcodone IR 5MG TABLET PO PRN ×2 (04:34→19:27)
[2020-05-03 06:45] VITALS: BP 135/68
[2020-05-03] MEDS: ALBUTEROL HFA 90 MCG/SPRAY INH SCH ×4 (07:00→19:49)
[2020-05-03] MEDS: LOSARTAN 100 MG TAB PO SCH (07:50)
[2020-05-03] MEDS: methylPREDNISolone SOD SUCC 125 MG/2 ML IVPush SCH ×3 (07:50→23:48)
[2020-05-03] MEDS: AMLODIPINE 5 MG TABLET PO SCH (07:50)
[2020-05-03] MEDS: FUROSEMIDE 80 MG TABLET PO SCH (07:51)
[2020-05-03] MEDS: SENNA/DOCUSATE TABLET PO SCH (07:51)
[2020-05-03 09:11] LABS: BASOPHILS % (AUTO) 1 % (0-1); EOSINOPHILS % (AUTO) 0 % (1-7); LYMPHOCYTES % (AUTO) 6 % (22-44); MEAN CORPUSCULAR HEMOGLOBIN 30.2 pg (27.0-34.8); MEAN CORPUSCULAR HGB CONC 31.3 g/dL (32.4-35.8); MEAN PLATELET VOLUME 7.6 fL (7.4-10.4); MONOCYTES % (AUTO) 3 % (2-9); NEUTROPHILS % (AUTO) 91 % (42-75); PLATELET COUNT 122 x10^3/uL (130-400); RED BLOOD COUNT 3.86 x10^6/uL (3.82-5.3); RED CELL DISTRIBUTION WIDTH 17.1 % (9.6-15.2)
[2020-05-03 09:21] LABS: ALBUMIN 2.9 g/dL (3.4-5.0); ANION GAP 6 mmol/L (5-15); CALCIUM 8.4 mg/dL (8.5-10.1); CHLORIDE 107 mmol/L (98-107)
[2020-05-03 09:24] LABS: ALANINE AMINOTRANSFERASE 24 U/L (12-78); ALKALINE PHOSPHATASE 97 U/L (45-117); BILIRUBIN,TOTAL 0.3 mg/dL (0.2-1.0); CREATININE 4.03 mg/dL (0.55-1.02)
[2020-05-03 09:32] LABS: MD SCAN
[2020-05-03 12:06] VITALS: BP 140/78
[2020-05-03 19:23] VITALS: BP_SYST 140; BP_SYST 150; BP_DIAS 112; BP_DIAS 78
[2020-05-03 20:16] VITALS: BP 129/80
[2020-05-03] MEDS: TEMAZEPAM 15 MG CAPSULE PO PRN (23:48)
[2020-05-04 01:58] VITALS: BP 148/85
[2020-05-04] MEDS: HEPARIN 5,000 UNITS/ML, 1ML SQ SCH ×3 (02:41→18:24)
[2020-05-04] MEDS: OXYcodone IR 5MG TABLET PO PRN ×2 (02:41→20:31)
[2020-05-04 05:18] LABS: ALBUMIN 3.1 g/dL (3.4-5.0); ANION GAP 6 mmol/L (5-15); CALCIUM 8.5 mg/dL (8.5-10.1); CHLORIDE 105 mmol/L (98-107)
[2020-05-04 05:19] LABS: CREATININE 4.12 mg/dL (0.55-1.02)
[2020-05-04] MEDS: ALBUTEROL HFA 90 MCG/SPRAY INH SCH ×4 (07:00→20:00)
[2020-05-04 07:06] VITALS: BP 163/92
[2020-05-04] MEDS: SENNA/DOCUSATE TABLET PO SCH (09:00)
[2020-05-04] MEDS: methylPREDNISolone SOD SUCC 125 MG/2 ML IVPush SCH ×2 (12:32→16:55)
[2020-05-04] MEDS: FUROSEMIDE 80 MG TABLET PO SCH (12:33)
[2020-05-04] MEDS: LOSARTAN 100 MG TAB PO SCH (12:33)
[2020-05-04] MEDS: AMLODIPINE 5 MG TABLET PO SCH (12:33)
[2020-05-04 16:22] LABS: AMPHETAMINE SCREEN, URINE Negative (Negative); BARBITURATE SCREEN, URINE Negative (Negative); BENZODIAZEPINE SCREEN, URINE Negative (Negative); CANNABINOID SCREEN, URINE Negative (Negative); COCAINE SCREEN, URINE Negative (Negative); METHADONE SCREEN, URINE Negative (Negative); OPIATE SCREEN, URINE Negative (Negative)
[2020-05-04 20:19] VITALS: BP 131/79
[2020-05-04] MEDS: TEMAZEPAM 15 MG CAPSULE PO PRN (20:25)
[2020-05-05 01:52] VITALS: BP 123/64
[2020-05-05] MEDS: HEPARIN 5,000 UNITS/ML, 1ML SQ SCH ×3 (02:00→18:16)
[2020-05-05] MEDS: methylPREDNISolone SOD SUCC 125 MG/2 ML IVPush SCH ×3 (02:00→18:16)
[2020-05-05] MEDS: OXYcodone IR 5MG TABLET PO PRN ×3 (05:32→21:28)
[2020-05-05] MEDS: ALBUTEROL HFA 90 MCG/SPRAY INH SCH ×4 (05:33→19:35)
[2020-05-05 05:52] LABS: BASOPHILS % (AUTO) 0 % (0-1); EOSINOPHILS % (AUTO) 0 % (1-7); LYMPHOCYTES % (AUTO) 3 % (22-44); MEAN CORPUSCULAR HEMOGLOBIN 30.2 pg (27.0-34.8); MEAN CORPUSCULAR HGB CONC 31.1 g/dL (32.4-35.8); MEAN PLATELET VOLUME 8.4 fL (7.4-10.4); MONOCYTES % (AUTO) 1 % (2-9); NEUTROPHILS % (AUTO) 95 % (42-75); PLATELET COUNT 115 x10^3/uL (130-400); RED BLOOD COUNT 3.85 x10^6/uL (3.82-5.3); RED CELL DISTRIBUTION WIDTH 17.3 % (9.6-15.2)
[2020-05-05 05:57] LABS: ANION GAP 3 mmol/L (5-15); CALCIUM 8.4 mg/dL (8.5-10.1); CHLORIDE 107 mmol/L (98-107); CREATININE 3.72 mg/dL (0.55-1.02)
[2020-05-05 06:33] LABS: MD SCAN
[2020-05-05 07:33] VITALS: BP 160/78
[2020-05-05] MEDS: FUROSEMIDE 80 MG TABLET PO SCH (09:23)
[2020-05-05] MEDS: SENNA/DOCUSATE TABLET PO SCH (09:23)
[2020-05-05] MEDS: SODIUM ZIRCONIUM CYCLOSILICATE 5 GM PO SCH (09:51)
[2020-05-05] MEDS: AMLODIPINE 10 MG TAB PO SCH (09:52)
[2020-05-05] MEDS: CARVEDILOL 12.5 MG TABLET PO SCH ×2 (09:56→18:17)
[2020-05-05 18:31] VITALS: BP 150/87
[2020-05-05 18:45] VITALS: BP 150/87
[2020-05-05] MEDS: TEMAZEPAM 15 MG CAPSULE PO PRN (21:27)
[2020-05-06 00:34] VITALS: BP 110/72
[2020-05-06] MEDS: methylPREDNISolone SOD SUCC 125 MG/2 ML IVPush SCH (01:46)
[2020-05-06] MEDS: HEPARIN 5,000 UNITS/ML, 1ML SQ SCH ×3 (01:46→18:02)
[2020-05-06] MEDS: OXYcodone IR 5MG TABLET PO PRN ×2 (03:43→20:17)
[2020-05-06] MEDS: CARVEDILOL 12.5 MG TABLET PO SCH ×2 (05:46→18:02)
[2020-05-06] MEDS: ALBUTEROL HFA 90 MCG/SPRAY INH SCH ×4 (06:12→20:00)
[2020-05-06 06:15] LABS: CHLORIDE 105 mmol/L (98-107)
[2020-05-06 06:20] LABS: ALBUMIN 2.9 g/dL (3.4-5.0); ANION GAP 7 mmol/L (5-15); CALCIUM 8.3 mg/dL (8.5-10.1); CREATININE 3.71 mg/dL (0.55-1.02)
[2020-05-06 07:15] VITALS: BP 122/86
[2020-05-06] MEDS ORDERED: methylPREDNISolone SOD SUCC 125 MG/2 ML IVPush SCH (09:00)
[2020-05-06 09:33] VITALS: BP 139/70
[2020-05-06] MEDS: SODIUM ZIRCONIUM CYCLOSILICATE 5 GM PO SCH (12:13)
[2020-05-06] MEDS: AMLODIPINE 10 MG TAB PO SCH (12:13)
[2020-05-06] MEDS: SENNA/DOCUSATE TABLET PO SCH (12:13)
[2020-05-06] MEDS: FUROSEMIDE 80 MG TABLET PO SCH (12:39)
[2020-05-06 12:42] VITALS: BP 133/84
[2020-05-06 12:45] VITALS: BP 133/84
[2020-05-06 20:02] VITALS: BP 120/78
[2020-05-06] MEDS: TEMAZEPAM 15 MG CAPSULE PO PRN (20:18)
[2020-05-06] MEDS ORDERED: methylPREDNISolone SOD SUCC 125 MG/2 ML IVPush ONE (21:00)
[2020-05-07 00:04] VITALS: BP 134/88
[2020-05-07] MEDS: OXYcodone IR 5MG TABLET PO PRN ×2 (01:06→15:17)
[2020-05-07] MEDS: HEPARIN 5,000 UNITS/ML, 1ML SQ SCH ×3 (01:11→17:27)
[2020-05-07] MEDS: CARVEDILOL 12.5 MG TABLET PO SCH ×2 (06:00→17:27)
[2020-05-07 07:09] LABS: ALBUMIN 2.9 g/dL (3.4-5.0); ANION GAP 6 mmol/L (5-15); CALCIUM 8.2 mg/dL (8.5-10.1); CHLORIDE 104 mmol/L (98-107)
[2020-05-07 07:10] LABS: CREATININE 3.31 mg/dL (0.55-1.02)
[2020-05-07] MEDS: ALBUTEROL HFA 90 MCG/SPRAY INH SCH ×4 (07:55→19:17)
[2020-05-07] MEDS: SENNA/DOCUSATE TABLET PO SCH (07:55)
[2020-05-07] MEDS: SODIUM ZIRCONIUM CYCLOSILICATE 5 GM PO SCH (07:56)
[2020-05-07] MEDS: AMLODIPINE 10 MG TAB PO SCH (07:56)
[2020-05-07] MEDS: FUROSEMIDE 80 MG TABLET PO SCH (08:01)
[2020-05-07 08:18] VITALS: BP 131/95
[2020-05-07 12:15] VITALS: BP 124/92
[2020-05-07] MEDS ORDERED: DIPHENHYDRAMINE 25 MG CAPSULE PO ONE (18:00)
[2020-05-07] MEDS ORDERED: DIPHENHYDRAMINE 25 MG CAPSULE ONE (18:05)
[2020-05-07 19:16] VITALS: BP 137/74
[2020-05-08 01:42] VITALS: BP 108/69
[2020-05-08] MEDS: CARVEDILOL 12.5 MG TABLET PO SCH ×2 (04:09→18:57)
[2020-05-08] MEDS: HEPARIN 5,000 UNITS/ML, 1ML SQ SCH ×3 (04:09→21:27)
[2020-05-08] MEDS: OXYcodone IR 5MG TABLET PO PRN ×2 (04:09→21:27)
[2020-05-08 04:48] LABS: ALBUMIN 2.8 g/dL (3.4-5.0); ANION GAP 6 mmol/L (5-15); CALCIUM 7.9 mg/dL (8.5-10.1); CHLORIDE 106 mmol/L (98-107); CREATININE 3.93 mg/dL (0.55-1.02)
[2020-05-08 06:42] VITALS: BP 106/72
[2020-05-08] MEDS: ALBUTEROL HFA 90 MCG/SPRAY INH SCH ×4 (08:00→19:47)
[2020-05-08] MEDS: SENNA/DOCUSATE TABLET PO SCH (08:18)
[2020-05-08] MEDS: SODIUM ZIRCONIUM CYCLOSILICATE 5 GM PO SCH (08:18)
[2020-05-08] MEDS: AMLODIPINE 10 MG TAB PO SCH (08:18)
[2020-05-08] MEDS: FUROSEMIDE 80 MG TABLET PO SCH (08:31)
[2020-05-08] MEDS ORDERED: CATHFLO-ALTEPLASE 2 MG/2 ML CATHFLUSH ONE (11:00)
[2020-05-08 15:06] VITALS: BP 128/80
[2020-05-08 18:55] VITALS: BP 131/73
[2020-05-08] MEDS: TEMAZEPAM 15 MG CAPSULE PO PRN (21:26)
[2020-05-09] VITALS (9 sets, daily range): BP systolic 85–139; BP diastolic 48–86
[2020-05-09 04:49] LABS: BASOPHILS % (AUTO) 0 % (0-1); EOSINOPHILS % (AUTO) 0 % (1-7); LYMPHOCYTES % (AUTO) 12 % (22-44); MEAN CORPUSCULAR HEMOGLOBIN 30.6 pg (27.0-34.8); MEAN CORPUSCULAR HGB CONC 31.6 g/dL (32.4-35.8); MEAN PLATELET VOLUME 8.5 fL (7.4-10.4); MONOCYTES % (AUTO) 7 % (2-9); NEUTROPHILS % (AUTO) 81 % (42-75); PLATELET COUNT 127 x10^3/uL (130-400); RED BLOOD COUNT 3.94 x10^6/uL (3.82-5.3); RED CELL DISTRIBUTION WIDTH 17.3 % (9.6-15.2)
[2020-05-09 04:50] LABS: MD NO
[2020-05-09 05:01] LABS: ALANINE AMINOTRANSFERASE 25 U/L (12-78); ALBUMIN 2.8 g/dL (3.4-5.0); ANION GAP 6 mmol/L (5-15); CHLORIDE 104 mmol/L (98-107)
[2020-05-09 05:03] LABS: ALKALINE PHOSPHATASE 84 U/L (45-117); BILIRUBIN,TOTAL 0.3 mg/dL (0.2-1.0); CREATININE 3.76 mg/dL (0.55-1.02); TOTAL PROTEIN 5.6 g/dL (6.4-8.2)
[2020-05-09] MEDS: CARVEDILOL 12.5 MG TABLET PO SCH ×2 (05:45→17:04)
[2020-05-09] MEDS: OXYcodone IR 5MG TABLET PO PRN ×2 (05:45→18:47)
[2020-05-09] MEDS: HEPARIN 5,000 UNITS/ML, 1ML SQ SCH ×3 (05:45→19:52)
[2020-05-09] MEDS: ALBUTEROL HFA 90 MCG/SPRAY INH SCH ×4 (07:00→20:00)
[2020-05-09] MEDS: SODIUM ZIRCONIUM CYCLOSILICATE 5 GM PO SCH (09:12)
[2020-05-09] MEDS: FUROSEMIDE 80 MG TABLET PO SCH (09:13)
[2020-05-09] MEDS: SENNA/DOCUSATE TABLET PO SCH (09:13)
[2020-05-09] MEDS ORDERED: DIPHENHYDRAMINE 25 MG CAPSULE ONE (21:06)
[2020-05-09] MEDS: DIPHENHYDRAMINE 50 MG CAPSULE PO PRN (21:09)
[2020-05-10 00:13] VITALS: BP 132/80
[2020-05-10] MEDS: CALCIUM CARBONATE 500 MG TAB.CHEW PO PRN (00:48)
[2020-05-10] MEDS: OXYcodone IR 5MG TABLET PO PRN ×2 (00:48→22:34)
[2020-05-10 05:18] VITALS: BP 112/72
[2020-05-10] MEDS: CARVEDILOL 12.5 MG TABLET PO SCH ×2 (05:23→17:30)
[2020-05-10] MEDS: HEPARIN 5,000 UNITS/ML, 1ML SQ SCH ×3 (05:23→21:00)
[2020-05-10 06:35] VITALS: BP 107/59
[2020-05-10] MEDS: FLUTICASONE/VILANTEROL 100-25MCG/INH INH SCH (09:00)
[2020-05-10] MEDS: ALBUTEROL HFA 90 MCG/SPRAY INH SCH ×4 (09:00→20:41)
[2020-05-10] MEDS: FUROSEMIDE 80 MG TABLET PO SCH (09:00)
[2020-05-10] MEDS: SODIUM ZIRCONIUM CYCLOSILICATE 5 GM PO SCH (09:05)
[2020-05-10] MEDS: SENNA/DOCUSATE TABLET PO SCH (09:05)
[2020-05-10 12:00] VITALS: BP 113/71
[2020-05-10 17:29] VITALS: BP 113/75
[2020-05-10 19:04] VITALS: BP 126/87
[2020-05-10] MEDS ORDERED: DIPHENHYDRAMINE 25 MG CAPSULE ONE (22:30)
[2020-05-10] MEDS: DIPHENHYDRAMINE 50 MG CAPSULE PO PRN (22:34)
[2020-05-11] VITALS (7 sets, daily range): BP systolic 92–137; BP diastolic 58–92
[2020-05-11] MEDS: CALCIUM CARBONATE 500 MG TAB.CHEW PO PRN (04:08)
[2020-05-11] MEDS: OXYcodone IR 5MG TABLET PO PRN ×2 (04:08→20:11)
[2020-05-11] MEDS: HEPARIN 5,000 UNITS/ML, 1ML SQ SCH ×3 (05:00→20:10)
[2020-05-11 05:45] LABS: ANION GAP 8 mmol/L (5-15); CALCIUM 8.1 mg/dL (8.5-10.1); CHLORIDE 103 mmol/L (98-107)
[2020-05-11 05:46] LABS: CREATININE 5.36 mg/dL (0.55-1.02)
[2020-05-11] MEDS: CARVEDILOL 12.5 MG TABLET PO SCH ×2 (05:47→17:22)
[2020-05-11] MEDS: ALBUTEROL HFA 90 MCG/SPRAY INH SCH ×4 (07:00→19:27)
[2020-05-11] MEDS: FLUTICASONE/VILANTEROL 100-25MCG/INH INH SCH (11:55)
[2020-05-11] MEDS: FUROSEMIDE 80 MG TABLET PO SCH (11:57)
[2020-05-11] MEDS: SODIUM ZIRCONIUM CYCLOSILICATE 5 GM PO SCH (12:00)
[2020-05-11] MEDS: SENNA/DOCUSATE TABLET PO SCH (12:00)
[2020-05-11] MEDS ORDERED: DIPHENHYDRAMINE 25 MG CAPSULE ONE (20:04)
[2020-05-11] MEDS: DIPHENHYDRAMINE 50 MG CAPSULE PO PRN (20:10)
[2020-05-12 00:09] VITALS: BP 112/72
[2020-05-12] MEDS: HEPARIN 5,000 UNITS/ML, 1ML SQ SCH ×3 (03:52→21:57)
[2020-05-12 05:03] VITALS: BP 131/77
[2020-05-12] MEDS: CARVEDILOL 12.5 MG TABLET PO SCH ×2 (05:04→18:00)
[2020-05-12 06:21] VITALS: BP 131/73
[2020-05-12] MEDS: ALBUTEROL HFA 90 MCG/SPRAY INH SCH ×4 (07:00→19:35)
[2020-05-12] MEDS: FLUTICASONE/VILANTEROL 100-25MCG/INH INH SCH (07:54)
[2020-05-12] MEDS: FUROSEMIDE 80 MG TABLET PO SCH (09:24)
[2020-05-12] MEDS: SENNA/DOCUSATE TABLET PO SCH (09:24)
[2020-05-12 12:14] VITALS: BP 126/76
[2020-05-12] MEDS ORDERED: FENTANYL PF 100 MCG/2ML ONE (14:42)
[2020-05-12] MEDS ORDERED: MIDAZOLAM 1 MG/ML, 5ML ONE (14:42)
[2020-05-12] MEDS ORDERED: FLUMAZENIL 0.1 MG/1 ML, 5ML ONE (14:42)
[2020-05-12] MEDS ORDERED: NALOXONE 1 MG/ML, 2ML ONE (14:42)
[2020-05-12] MEDS ORDERED: CEFAZOLIN PMX 1GM/50ML 50 ML ONE (14:43)
[2020-05-12] MEDS ORDERED: LIDOCAINE 1%, 10ML ONE (14:45)
[2020-05-12] MEDS: SODIUM ZIRCONIUM CYCLOSILICATE 5 GM PO SCH (15:53)
[2020-05-12 18:47] VITALS: BP 92/58
[2020-05-13 00:06] VITALS: BP 132/85
[2020-05-13] MEDS: OXYcodone IR 5MG TABLET PO PRN (00:45)
[2020-05-13] MEDS: DIPHENHYDRAMINE 50 MG CAPSULE PO PRN (02:07)
[2020-05-13 05:09] VITALS: BP 104/63
[2020-05-13] MEDS: HEPARIN 5,000 UNITS/ML, 1ML SQ SCH ×2 (05:10→14:22)
[2020-05-13] MEDS: CARVEDILOL 12.5 MG TABLET PO SCH (05:10)
[2020-05-13 05:31] LABS: BASOPHILS % (AUTO) 0 % (0-1); EOSINOPHILS % (AUTO) 1 % (1-7); LYMPHOCYTES % (AUTO) 10 % (22-44); MEAN CORPUSCULAR HEMOGLOBIN 30.7 pg (27.0-34.8); MEAN CORPUSCULAR HGB CONC 31.5 g/dL (32.4-35.8); MEAN PLATELET VOLUME 8.2 fL (7.4-10.4); MONOCYTES % (AUTO) 7 % (2-9); NEUTROPHILS % (AUTO) 81 % (42-75); PLATELET COUNT 131 x10^3/uL (130-400); RED BLOOD COUNT 3.38 x10^6/uL (3.82-5.3); RED CELL DISTRIBUTION WIDTH 17.5 % (9.6-15.2)
[2020-05-13 05:41] LABS: ANION GAP 8 mmol/L (5-15); CHLORIDE 104 mmol/L (98-107); MD NO
[2020-05-13 05:44] LABS: CALCIUM 7.8 mg/dL (8.5-10.1); CREATININE 5.24 mg/dL (0.55-1.02)
[2020-05-13] MEDS: ALBUTEROL HFA 90 MCG/SPRAY INH SCH ×3 (07:00→14:26)
[2020-05-13] MEDS: FLUTICASONE/VILANTEROL 100-25MCG/INH INH SCH (07:04)
[2020-05-13 07:28] VITALS: BP 103/62
[2020-05-13] MEDS: SENNA/DOCUSATE TABLET PO SCH (08:25)
[2020-05-13] MEDS: SODIUM ZIRCONIUM CYCLOSILICATE 5 GM PO SCH (08:25)
[2020-05-13] MEDS: FUROSEMIDE 80 MG TABLET PO SCH (09:00)
[2020-05-13] MEDS ORDERED: PRED20TA PO (10:04)
[2020-05-13] MEDS ORDERED: SODI5POW2 PO (10:04)
[2020-05-13] MEDS ORDERED: FURO80TA3 PO (10:04)
[2020-05-13] MEDS ORDERED: CARV12.52 PO (10:04)
[2020-05-13] MEDS ORDERED: FLUT1AER INH (10:04)
[2020-05-13] MEDS ORDERED: SENN-211 PO (10:04)
[2020-05-13 13:32] VITALS: BP 107/67
== END 2020-05-13 17:15 | disposition home or self-care (01) | DRG 133 ==
LOC: ED 14:30 → EDIP 15:38 → SUATTDRO 15:45 → 4WST 18:23
PROVIDERS: ADMIT Internal Medicine; ATTEND Hospitalist
PROC: 0JH63XZ Insertion of Tunneled Vascular Access Device into Chest Subcutaneous Tissue and Fascia, Percutaneous Approach (ICD-10-PCS; principal; 2020-04-26)
PROC: 02H633Z Insertion of Infusion Device into Right Atrium, Percutaneous Approach (ICD-10-PCS; 2020-04-26)
PROC: 5A1D70Z Performance of Urinary Filtration, Intermittent, Less than 6 Hours Per Day (ICD-10-PCS; 2020-04-26)
PROC: 5A1D70Z Performance of Urinary Filtration, Intermittent, Less than 6 Hours Per Day (ICD-10-PCS; 2020-04-27)
PROC: 5A1D70Z Performance of Urinary Filtration, Intermittent, Less than 6 Hours Per Day (ICD-10-PCS; 2020-04-29)
PROC: 5A1D70Z Performance of Urinary Filtration, Intermittent, Less than 6 Hours Per Day (ICD-10-PCS; 2020-05-01)
PROC: 5A1D70Z Performance of Urinary Filtration, Intermittent, Less than 6 Hours Per Day (ICD-10-PCS; 2020-05-04)
PROC: 5A1D70Z Performance of Urinary Filtration, Intermittent, Less than 6 Hours Per Day (ICD-10-PCS; 2020-05-06)
PROC: 5A1D70Z Performance of Urinary Filtration, Intermittent, Less than 6 Hours Per Day (ICD-10-PCS; 2020-05-08)
PROC: 5A1D70Z Performance of Urinary Filtration, Intermittent, Less than 6 Hours Per Day (ICD-10-PCS; 2020-05-11)
PROC: 0JPV3XZ Removal of Tunneled Vascular Access Device from Upper Extremity Subcutaneous Tissue and Fascia, Percutaneous Approach (ICD-10-PCS; 2020-05-12)
PROC: 02PA33Z Removal of Infusion Device from Heart, Percutaneous Approach (ICD-10-PCS; 2020-05-12)
PROC: 0JH63XZ Insertion of Tunneled Vascular Access Device into Chest Subcutaneous Tissue and Fascia, Percutaneous Approach (ICD-10-PCS; 2020-05-12)
PROC: 02H633Z Insertion of Infusion Device into Right Atrium, Percutaneous Approach (ICD-10-PCS; 2020-05-12)
PROC: B5181ZA Fluoroscopy of Superior Vena Cava using Low Osmolar Contrast, Guidance (ICD-10-PCS; 2020-05-12)
PROC: B548ZZA Ultrasonography of Superior Vena Cava, Guidance (ICD-10-PCS; 2020-05-12)
DX: J96.01 Acute respiratory failure with hypoxia (principal); I13.2 Hypertensive heart and chronic kidney disease with heart failure and with stage 5 chronic kidney disease, or end stage renal disease; N18.6 End stage renal disease; F17.200 Nicotine dependence, unspecified, uncomplicated; J44.1 Chronic obstructive pulmonary disease with (acute) exacerbation; E87.5 Hyperkalemia; D63.1 Anemia in chronic kidney disease; I95.3 Hypotension of hemodialysis; E78.5 Hyperlipidemia, unspecified; I27.20 Pulmonary hypertension, unspecified; I31.3 Pericardial effusion (noninflammatory); I50.30 Unspecified diastolic (congestive) heart failure; I77.810 Thoracic aortic ectasia; K59.09 Other constipation; Z88.2 Allergy status to sulfonamides; Z88.8 Allergy status to other drugs, medicaments and biological substances; Z68.38 Body mass index [BMI] 38.0-38.9, adult; Z79.899 Other long term (current) drug therapy; Z99.2 Dependence on renal dialysis; Z91.15 Patient's noncompliance with renal dialysis; Z91.19 Patient's noncompliance with other medical treatment and regimen
CPT/HCPCS: 36415; 36581; 71045; 75984; 80048; 80053; 80069; 80307; 82040; 83735; 83880; 84100; 84484; 85025; 86480; 86705; 86706; 87340; 90935; 93005; 93306; 93356; 94640; 96374; 96376; 99156; 99157; 99285; G0378; J0690; J1644; J1940; J2250; J3010; C1750; G0365; J0360; J1642; J2310; J2930; J7512; Q0163